=== PATIENT | female | born 1960 | race American Indian/Alaskan Native ===

== ENCOUNTER 2016-07-15 16:25 | Emergency (ER) | payer SELFPAY ==
[2016-07-15 16:59] VITALS: BP 153/78
[2016-07-15 18:01] LABS: Basophils % (Auto) 0.3 % (0.0-1.8); Eosinophils % (Auto) 0.9 % (0.0-4.3); Hematocrit 38.4 % (30.3-42.9); Hemoglobin 12.7 gm/dl (10.1-14.3); Mean Corpuscular HGB Conc 33 % (30-34); Mean Corpuscular Hemoglobin 28 pg (28-32); Mean Corpuscular Volume 85 fl (79-97); Platelet Count 182 K/mm3 (140-440); Red Blood Count 4.52 M/mm3 (3.65-5.03); Red Cell Distribution Width 14.4 % (13.2-15.2); White Blood Count 9.7 K/mm3 (4.5-11.0)
[2016-07-15 18:21] LABS: Anion Gap 17 mmol/L; BUN/Creatinine Ratio 16.25; Blood Urea Nitrogen 13 mg/dL (7-17); Calcium 9.5 mg/dL (8.4-10.2); Carbon Dioxide 26 mmol/L (22-30); Chloride 100.8 mmol/L (98-107); Glucose 102 mg/dL (65-100); Sodium 140 mmol/L (137-145)
--- NOTE | 2016-07-16 14:50 | ED Elopement Review ---
ED Pt Elopement review - Results review Lab results: Laboratory Tests 07/15/16 07/15/16 17:37 17:37 WBC 9.7 RBC 4.52 Hgb 12.7 Hct 38.4 MCV 85 MCH 28 MCHC 33 RDW 14.4 Plt Count 182 Lymph % (Auto) 26.9 [place] % (Auto) 5.1 Eos % (Auto) 0.9 Baso % (Auto) 0.3 Lymph # 2.6 [place] # 0.5 Eos # 0.1 Baso # 0.0 Seg Neutrophils % 66.8 Seg Neutrophils # 6.5 Sodium 140 Potassium 4.0 Chloride 100.8 Carbon Dioxide 26 Anion Gap 17 BUN 13 Creatinine 0.8 Estimated GFR > 60 BUN/Creatinine Ratio 16.25 Glucose 102 H Calcium 9.5 Troponin T < 0.010 - Call Back decision Pt Call Back Decision: Call pt to return to ED MELISSA (chest pain may require inpatient evaluation)
== END 2016-07-16 01:17 | disposition left against medical advice (07) ==
LOC: ED 16:25
DX: R07.9 Chest pain, unspecified (principal); R06.02 Shortness of breath; Z53.21 Procedure and treatment not carried out due to patient leaving prior to being seen by health care provider
CPT/HCPCS: 36415; 80048; 84484; 85025; 93005; 93010

== ENCOUNTER 2017-06-01 10:30 | Emergency (ER) | payer BC ==
[2017-06-01 11:11] VITALS: BP 143/75
[2017-06-01] MEDS ORDERED: MOTRIN PO ONE (11:54)
--- NOTE | 2017-06-01 11:59 | Emergency Department Report ---
ED Laceration HPI - HPI Chief Complaint: Wound/Laceration Stated Complaint: RIGHT HAND LACERATION Time Seen by Provider: 06/01/17 11:53 Occurred When: Today Other History: 57-year-old after an [place] Citizen female comes in today for laceration to her right hand from washing dishes and she cut it on a glass. Patient is not sure she is up-to-date on her shots. She has no other concerns no past medical history she's had a hysterectomy no allergies to meds. ED Review of Systems ROS: Stated complaint: RIGHT HAND LACERATION Other details as noted in HPI Skin: other (small laceration that appears to be like a falayed. No active bleeding not edematous) ED Past Medical Hx - Past Medical History Previous Medical History?: No - Surgical History Hx Appendectomy: Yes Additional Surgical History: Hysterectomy - Social History Smoking Status: Current Some Day Smoker Substance Use Type: Alcohol - Medications Home Medications: Home Medications Medication Instructions Recorded Confirmed Last Taken Type Naproxen [Naprosyn] 250 mg PO PRN PRN 12/06/12 12/06/12 Unknown History Laceration Physical Exam - Exam General: Vital signs noted. No distress. Alert and acting appropriately. Wound Length (cm): 2 Laceration Exam: Yes Normal Distal CMS, No Foreign Body, No Exposed Tendon, Vessel, or Nerve, No Tendon Injury ED Course Vital Signs 06/01/17 11:08 Temperature 98.3 F Pulse Rate 75 Respiratory 18 Rate Blood Pressure 143/75 O2 Sat by Pulse 99 Oximetry - Laceration /Wound Repair Right Finger Wound Location: upper extremity Irrigated w/ Saline (ccs): 30 Betadine Prep?: Yes Wound Repaired With: Dermabond Sterile Dressing Applied?: Yes Progress: Patient tolerated it well ED Medical Decision Making - Medical Decision Making Patient has been evaluated by this provider fast track. I discussed the patient I will feel her laceration with Dermabond adhesive. She can take Tylenol or Motrin for pain I did give her an ibuprofen 802 on her fast track visit. She can follow up with her primary care provider. Verbalized understanding Critical care attestation.: If time is entered above; I have spent that time in minutes in the direct care of this critically ill patient, excluding procedure time. ED Disposition Clinical Impression: Laceration Disposition: DC-01 TO HOME OR SELFCARE Is pt being admited?: No Does the pt Need Aspirin: No Condition: Stable Instructions: Skin Adhesive Care (ED) Additional Instructions: Area clean and dry follow-up to primary care provider if necessary. Forms: Work/School Release Form(ED)
== END 2017-06-01 12:26 | disposition home or self-care (01) ==
LOC: ED 10:30
DX: S61.411A Laceration without foreign body of right hand, initial encounter (principal); F17.200 Nicotine dependence, unspecified, uncomplicated; Z90.49 Acquired absence of other specified parts of digestive tract; Z90.710 Acquired absence of both cervix and uterus; W25.XXXA Contact with sharp glass, initial encounter; Y93.G1 Activity, food preparation and clean up; Y99.8 Other external cause status; Y92.89 Other specified places as the place of occurrence of the external cause

== ENCOUNTER 2020-05-16 01:41 | Emergency (ER) | payer BC ==
[2020-05-16] MEDS ORDERED: ASPIRIN 325 MG TAB PO ONE (01:54)
--- NOTE | 2020-05-16 02:16 | Event Note ---
ED Screening Note Date of service: 05/16/20 Time: 01:50 ED Screening Note: Patient is a 60-year-old -[place] female with a history of hypertension who presents to the ED with persistently elevated blood pressure, facial numbness and tingling and left arm numbness sensation with shortness of breath intermittently for the last 2 days, worse in the last 6 hours. Patient states that she takes losartan and HCTZ for blood pressure but that her blood pressure prior to arrival in the ED was 180s systolic. Patient states that she woke up about 2 hours ago with facial numbness and tingling and worsening sensation of tingling in the left arm. Patient denies dizziness, syncope, palpitations, chest pain, headache, change in vision, nausea, vomiting, diaphoresis, neck pain, back pain, traumatic injury, heavy lifting, fever, chills, cough, abdominal pain or sore throat and dysphagia. This initial assessment/diagnostic orders/clinical plan/treatment(s) is/are subject to change based on patients health status, clinical progression and re- assessment by fellow clinical providers in the ED. Further treatment and workup at subsequent clinical providers discretion. Patient/guardian urged not to elope from the ED as their condition may be serious if not clinically assessed and managed. Initial orders include: EKG, CXR, CBC, CMP, troponin, aspirin
--- NOTE | 2020-05-16 02:28 | XRay Report ---
CHEST 1 VIEW 05/16/2020 1:14 AM INDICATION / CLINICAL INFORMATION: dyspnea. COMPARISON: 05/11/12 FINDINGS: SUPPORT DEVICES: None. HEART / MEDIASTINUM: No significant abnormality. LUNGS / PLEURA: No significant pulmonary or pleural abnormality. No pneumothorax. ADDITIONAL FINDINGS: No significant additional findings. IMPRESSION: 1. No acute findings. Signer Name: Justin Armijo MD Signed: 05/16/2020 2:23 AM Workstation Name: [id number]
[2020-05-16 02:32] LABS: Alanine Aminotransferase 25 units/L (7-56); Albumin 4.1 g/dL (3.9-5); Blood Urea Nitrogen 10 mg/dL (7-17); Calcium 8.6 mg/dL (8.4-10.2); Hemolysis Index 4
[2020-05-16 02:34] LABS: Basophils % (Auto) 0.3 % (0.0-1.8); Eosinophils # (Auto) 0.1 K/mm3 (0.0-0.4); Eosinophils % (Auto) 1.1 % (0.0-4.3); Hematocrit 36.9 % (30.3-42.9); Hemoglobin 13.2 gm/dl (10.1-14.3); Lymphocytes # (Auto) 3.5 K/mm3 (1.2-5.4); Lymphocytes % (Auto) 38.5 % (13.4-35.0); Mean Corpuscular HGB Conc 36 % (30-34); Mean Corpuscular Volume 87 fl (79-97); Monocytes # (Auto) 0.4 K/mm3 (0.0-0.8); Monocytes % (Auto) 4.6 % (0.0-7.3); Red Blood Count 4.24 M/mm3 (3.65-5.03); Red Cell Distribution Width 14.1 % (13.2-15.2)
[2020-05-16 02:46] LABS: BUN/Creatinine Ratio 14
[2020-05-16 02:49] LABS: Platelet Count 188 K/mm3 (140-440)
--- NOTE | 2020-05-16 03:37 | Emergency Department Report ---
ED General Adult HPI - General Chief complaint: High BP Stated complaint: HIGH BP Source: patient Mode of arrival: Ambulatory Limitations: No Limitations - History of Present Illness Initial comments: Patient is a 60-year-old -[place] female with a history of hypertension who presents to the ED with persistently elevated blood pressure, facial numbness and tingling and left arm numbness sensation with shortness of breath intermittently for the last 2 days, worse in the last 6 hours. Patient states that she takes losartan and HCTZ for blood pressure but that her blood pressure prior to arrival in the ED was 180s systolic. Patient states that she woke up about 2 hours ago with facial numbness and tingling and worsening sensation of tingling in the left arm. Patient denies dizziness, syncope, palpitations, chest pain, headache, change in vision, nausea, vomiting, diaphoresis, neck pain, back pain, traumatic injury, heavy lifting, fever, chills, cough, abdomi nal pain or sore throat and dysphagia. MD Complaint: elevated blood pressure; arm and facial tingling -: Sudden Location: head, face, upper extremity (left arm) Radiation: non-radiation Severity scale (0 -10): 3 Quality: burning, aching Consistency: intermittent Improves with: none Worsens with: none Associated Symptoms: denies other symptoms, shortness of breath. denies: confusion, chest pain, cough, diaphoresis, fever/chills, headaches, loss of appetite, malaise, nausea/vomiting, rash, seizure, syncope Treatments Prior to Arrival: none - Related Data Home Medications Medication Instructions Recorded Confirmed Last Taken Naproxen [Naprosyn] 250 mg PO PRN PRN 12/06/12 12/06/12 Unknown Allergies Allergy/AdvReac Type Severity Reaction Status Date / Time No Known Allergies Allergy Unverified 12/06/12 09:28 ED Review of Systems ROS: Stated complaint: HIGH BP Other details as noted in HPI Constitutional: other (facial tingling). denies: chills, fever Eyes: denies: eye pain, eye discharge, vision change ENT: denies: ear pain, throat pain Respiratory: shortness of breath. denies: cough, wheezing Cardiovascular: denies: chest pain, palpitations Endocrine: no symptoms reported Gastrointestinal: denies: abdominal pain, nausea, vomiting, diarrhea Genitourinary: denies: urgency, dysuria, discharge Musculoskeletal: denies: back pain, joint swelling, arthralgia Skin: denies: rash, lesions Neurological: denies: headache, weakness, paresthesias Psychiatric: denies: anxiety, depression Hematological/Lymphatic: denies: easy bleeding, easy bruising ED Past Medical Hx - Past Medical History Hx Hypertension: Yes - Surgical History Past Surgical History?: Yes Hx Appendectomy: Yes Additional Surgical History: Hysterectomy - Social History Smoking Status: Current Every Day Smoker Substance Use Type: Alcohol - Medications Home Medications: Home Medications Medication Instructions Recorded Confirmed Last Taken Type Naproxen [Naprosyn] 250 mg PO PRN PRN 12/06/12 12/06/12 Unknown History ED Physical Exam - General Limitations: No Limitations General appearance: alert, in no apparent distress - Head Head exam: Present: atraumatic, normocephalic, normal inspection - Eye Eye exam: Present: normal appearance, PERRL, EOMI Pupils: Present: normal accommodation - ENT ENT exam: Present: normal exam, normal orophraynx, mucous membranes moist, TM's normal bilaterally, normal external ear exam - Neck Neck exam: Present: normal inspection, full ROM - Respiratory Respiratory exam: Present: normal lung sounds bilaterally. Absent: respiratory distress, wheezes, rales, chest wall tenderness, accessory muscle use, decreased breath sounds, prolonged expiratory - Cardiovascular Cardiovascular Exam: Present: regular rate, normal rhythm, normal heart sounds. Absent: systolic murmur, diastolic murmur, rubs, gallop - GI/Abdominal GI/Abdominal exam: Present: soft, normal bowel sounds. Absent: distended, tenderness, guarding, hyperactive bowel sounds, hypoactive bowel sounds, organomegaly - Extremities Exam Extremities exam: Present: normal inspection, full ROM, normal capillary refill - Back Exam Back exam: Present: normal inspection, full ROM. Absent: tenderness, CVA tenderness (R), CVA tenderness (L), muscle spasm, paraspinal tenderness, vertebral tenderness - Neurological Exam Neurological exam: Present: alert, oriented X3, CN II-XII intact, normal gait, reflexes normal - Psychiatric Psychiatric exam: Present: normal affect, normal mood - Skin Skin exam: Present: warm, dry, intact, normal color. Absent: rash ED Course Vital Signs 05/16/20 05/16/20 01:47 04:05 Temperature 98.3 F 98.6 F Pulse Rate 81 86 Respiratory 18 18 Rate Blood Pressure 156/67 Blood Pressure 159/63 [Right] O2 Sat by Pulse 100 100 Oximetry ED Medical Decision Making - Lab Data Result diagrams: 05/16/20 01:56 05/16/20 01:56 - EKG Data EKG shows normal: sinus rhythm Rate: normal - EKG Data Interpretation: normal EKG 05/16/20 04:54 The EKG shows normal sinus rhythm with ventricular rate of [address] or T wave abnormalities. - Radiology Data Radiology results: report reviewed, image reviewed Findings [facility] [address] [place] [address] XRay Report Signed Patient: BRANDO SANCHEZ MR#: [id number] : 1960 Acct:[id number] Age/Sex: 60 / F ADM Date: 05/16/20 Loc: ED Attending Dr: Ordering Physician: KIMBERLY BROWN Date of Service: 05/16/20 Procedure(s): XR chest 1V ap Accession Number(s): [id number] cc: KIMBERLY BROWN Fluoro Time In Minutes: CHEST 1 VIEW 05/16/2020 1:14 AM INDICATION / CLINICAL INFORMATION: dyspnea. COMPARISON: 05/11/12 FINDINGS: SUPPORT DEVICES: None. HEART / MEDIASTINUM: No significant abnormality. LUNGS / PLEURA: No significant pulmonary or pleural abnormality. No pneumothorax. ADDITIONAL FINDINGS: No significant additional findings. IMPRESSION: 1. No acute findings. Signer Name: Justin Armijo MD Signed: 05/16/2020 2:23 AM Workstation Name: [id number] Transcribed By: DT Dictated By: Get Armijo MD Electronically Authenticated By: Get Armijo MD Signed Date/Time: 05/16/20222 DD/ 2 TD/TT: - Medical Decision Making This is a 60-year-old -[place] female with a history of hypertension who presents to the ED with persistently elevated blood pressure, facial numbness and tingling and left arm numbness sensation with shortness of breath intermittently for the last 2 days, worse in the last 6 hours. Patient states that she takes losartan and HCTZ for blood pressure but that her blood pressure prior to arrival in the ED was 180s systolic. Patient states that she woke up about 2 hours ago with facial numbness and tingling and worsening sensation of tingling in the left arm. In the ED, patient is alert and oriented x3 and is not in any distress. Patient's vital signs are stable. EKG shows normal sinus rhythm with a ventricular rate of [address] or T wave abnormalities. Chest x-ray shows no acute cardiopulmonary abnormalities or pneumonitis. All lab test results were reviewed and are all nonactionable. Patient's heart score is 2 and is PERC negative per Wells criteria. Patient was discharged home and advised to take her regular pain hypertension medications and to follow-up with her primary care physician in 5 to 7 days for reevaluation. Patient was advised return to the ED immediately if symptoms get worse. - Differential Diagnosis Uncontrolled HTN; Facial tingling, Anxiety; ACS Critical care attestation.: If time is entered above; I have spent that time in minutes in the direct care of this critically ill patient, excluding procedure time. ED Disposition Clinical Impression: Uncontrolled hypertension, stage 1, Anxiety as acute reaction to exceptional stress Disposition: DC-01 TO HOME OR SELFCARE Is pt being admited?: No Does the pt Need Aspirin: No Condition: Stable Instructions: Hypertension During , [id number], Hypertension (ED) Additional Instructions: All lab test results are unremarkable. Chest x-ray shows no acute cardiopulmonary abnormalities or pneumonitis. Take your regular medications for blood pressure, follow-up with your primary care physician in 5 to 7 days for reevaluation. ED immediately if symptoms get worse. Referrals: [facility] [Provider Group] - 3-5 Days Time of Disposition: 03:44 Print Language: MALDIVIAN
[2020-05-16 04:05] VITALS: BP 159/63
== END 2020-05-16 03:58 | disposition home or self-care (01) ==
LOC: ED 01:41
DX: F41.1 Generalized anxiety disorder (principal); F43.0 Acute stress reaction; I10 Essential (primary) hypertension; F17.200 Nicotine dependence, unspecified, uncomplicated; Z90.49 Acquired absence of other specified parts of digestive tract; Z90.710 Acquired absence of both cervix and uterus; Z79.899 Other long term (current) drug therapy
CPT/HCPCS: 36415; 71045; 80053; 84484; 85025; 93005

== ENCOUNTER 2021-03-07 19:52 | Emergency (ER) | payer BC | END 2021-03-07 20:30 | disposition left against medical advice (07) | LOC: ED 19:52 | DX: R51.9 Headache, unspecified (principal); Z53.21 Procedure and treatment not carried out due to patient leaving prior to being seen by health care provider ==

== ENCOUNTER 2021-12-24 10:54 | Emergency (ER) | payer BC | END 2021-12-24 18:44 | disposition left against medical advice (07) | LOC: ED 10:54 | DX: R07.9 Chest pain, unspecified (principal); Z53.21 Procedure and treatment not carried out due to patient leaving prior to being seen by health care provider ==